=== PATIENT | male | born 1960 | race Caucasian/White ===

== ENCOUNTER 2017-06-24 09:34 | Emergency (ER) | payer SELFPAY ==
[2017-06-24 09:43] VITALS: TEMP 98.4; BMI 21.9
[2017-06-24] MEDS ORDERED: diphenhydrAMINE HCL 25 MG CAPSULE (FP) PO ONE ×2 (11:18→11:38)
[2017-06-24] MEDS ORDERED: LORazepam 1 MG TABLET PO ONE (11:18)
--- NOTE | 2017-06-24 11:23 | PDOC ---
History of Present Illness - General Chief Complaint: Respiratory Stated Complaint: SOB Time Seen by Provider: 06/24/17 10:37 History Source: Patient - History of Present Illness Timing/Duration: reports: other Associated Symptoms: reports: cough, nasal congestion, nasal drainage, shortness of breath. denies: chest pain/soreness, fever/chills, muscle aches, sore throat Past History - Past Medical History Allergies/Adverse Reactions: Allergies Allergy/AdvReac Type Severity Reaction Status Date / Time No Known Allergies Allergy Verified 06/24/17 09:43 Home Medications: Ambulatory Orders NK [No Known Home Medication] 06/24/17 COPD: No HTN: Yes Psychiatric Problems: Yes (ANXIETY, DEPRESSION) - Immunization History Immunization Up to Date: Yes - Suicide/Smoking/Psychosocial Hx Smoking Status: No Smoking History: Never smoked Have you smoked in the past 12 months: No Hx Alcohol Use: No Drug/Substance Use Hx: No Substance Use Type: None Review of Systems - Review of Systems Constitutional: No: Chills, Fever HEENTM: Yes: Nose Congestion. No: Throat Pain Respiratory: Yes: Cough, Shortness of Breath. No: Wheezing Cardiac (ROS): No: Chest Pain ABD/GI: No: Diarrhea, Nausea, Vomiting *Physical Exam - Vital Signs Last Vital Signs Temp Pulse Resp BP Pulse Ox 98.4 F 95 H 18 138/96 97 06/24/17 09:41 06/24/17 09:41 06/24/17 09:41 06/24/17 09:41 06/24/17 09:41 - Physical Exam Comments: 06/24/17 11:23 appears anxious and teary General Appearance: Yes: Appropriately Dressed HEENT: positive: Normal Voice. negative: Scleral Icterus (R), Scleral Icterus ( L) Neck: positive: Supple. negative: Lymphadenopathy (R), Lymphadenopathy (L) Respiratory/Chest: positive: Lungs Clear, Normal Breath Sounds. negative: Respiratory Distress Cardiovascular: positive: Regular Rate, S1, S2 Gastrointestinal/Abdominal: positive: Soft. negative: Tender Integumentary: positive: Dry, Warm. negative: Rash Neurologic: positive: Fully Oriented, Alert ED Treatment Course - LABORATORY CBC & Chemistry Diagram: 06/24/17 12:16 06/24/17 12:16 - RADIOLOGY Radiology Studies Ordered: Category Date Time Status CHEST PA & LAT [RAD] Stat Radiology 06/24/17 11:17 Ordered Medical Decision Making - Medical Decision Making 06/24/17 11:18 57-year-old male history of anxiety ran out of his lorazepam August of last year , possible depression, here with nasal congestion with rhinorrhea, productive cough and possible shortness of breath 10 days. No CP. Denies any body aches, fever or chills. Patient also complaining of generalized pruritis 2 weeks that started after roommate bought a dog. Patient states he is allergic to dogs. No history of anaphylaxis. States he is unable to sleep because of pruritus. See exam Viral syndrome -labs/cxr Pruritis M/l allergic rxn to dog at home No h/o anaphylaxis -Benadryl -pt states in process of moving out of current residence 2/2 dog Anxiety Appears anxious and teary on eval Has empty bottle of lorazepam on his person that was filled 09/07 -dose of ativan in ED -will refer to out-pt clinic on discharge 06/24/17 12:59pm Pt is more relaxed and calm after dose of Ativan. Labs and chest x-ray unremarkable. Will dc with supportive treatment. Clinic referral given 06/24/17 13:03 *DC/Admit/Observation/Transfer Diagnosis at time of Disposition: Viral syndrome - Discharge Dispostion Disposition: HOME Condition at time of disposition: Improved - Referrals Referrals: [facility] (Harini Clancy) [Outside] - Patient Instructions Printed Discharge Instructions: DI for General Allergic Reactions, DI for Viral Syndrome Additional Instructions: Alma sntomas son muy probablemente virales. Alma exmenes de laboratorio, dayanara X y gripe fueron todos normales. Descanse, tome muchos lquidos y tome Tylenol segn sea necesario para el dolor y / o la fiebre. [place] benadryl sobre el mostrador segn lo indicado para la picazn Tendr que hacer un seguimiento en la clnica para reiniciar mariano medicacin para la ansiedad. Por favor haz un seguimiento en [facility] Print Language: SWEDISH - Post Discharge Activity
[2017-06-24] MEDS ORDERED: LORazepam 0.5 MG TABLET ONE (11:38)
[2017-06-24 12:31] LABS: BASO % 1.1 % (0-2.0); EOS % 2.6 % (0-4.5); HEMATOCRIT 44.6 % (35.4-49); HEMOGLOBIN 14.5 GM/dL (11.7-16.9); LYMPH % 15.6 % (8-40); MCH 28.1 pg (25.7-33.7); MCHC 32.5 g/dl (32.0-35.9); MEAN CELL VOLUME 86.5 fl (80-96); MEAN PLT VOLUME 7.9 fl (7.5-11.1); MONO % 8.8 % (3.8-10.2); NEUT % 71.9 % (42.8-82.8); PLATELET COUNT 279 K/MM3 (134-434); RBC 5.15 M/mm3 (4.00-5.60); WHITE BLOOD COUNT 7.5 K/mm3 (4.0-10.0)
[2017-06-24 12:32] LABS: URINE APPEARANCE CLEAR; URINE BILIRUBIN NEGATIVE (NEGATIVE); URINE BLOOD 1+ (NEGATIVE); URINE COLOR LTYELLOW; URINE GLUCOSE (UA) NEGATIVE (NEGATIVE); URINE KETONE TRACE (NEGATIVE); URINE LEUK ESTERASE NEGATIVE (NEGATIVE); URINE NITRITE NEGATIVE (NEGATIVE); URINE PROTEIN NEGATIVE (NEGATIVE); URINE UROBILINOGEN NEGATIVE mg/dL (0.2-1.0)
[2017-06-24 12:54] LABS: ALBUMIN 4.3 g/dl (3.4-5.0); ALK PHOS 85 U/L (45-117); ANION GAP 8 (8-16); BILIRUBIN,TOTAL 0.4 mg/dL (0.2-1.0); BLOOD UREA NITROGEN 11 mg/dL (7-18); CHLORIDE 106 mmol/L (98-107); CO2 27 mmol/L (21-32); CREATININE 0.7 mg/dL (0.7-1.3); GLUCOSE,RANDOM 91 mg/dL (74-106); LIPASE 99 U/L (73-393); SGOT/AST 14 U/L (15-37); SGPT/ALT 18 U/L (12-78); SODIUM 141 mmol/L (136-145); TOT PROT 7.2 g/dl (6.4-8.2)
[2017-06-24 13:25] VITALS: BP 142/92; PULSE 72
--- NOTE | 2017-06-24 14:03 | EKG ---
Test Reason : Blood Pressure : / mmHG Vent. Rate : 067 BPM Atrial Rate : 067 BPM P-R Int : 186 ms QRS Dur : 092 ms QT Int : 408 ms P-R-T Axes : 067 043 054 degrees QTc Int : 431 ms NORMAL SINUS RHYTHM NORMAL ECG WHEN COMPARED WITH ECG OF 10-MAY-2014 20:03, NO SIGNIFICANT CHANGE WAS FOUND Confirmed by SOFAI HORNER MD ([id number]) on 06/24/2017 2:02:29 PM Referred By: Confirmed By:SOFIA HORNER MD
== END 2017-06-24 13:35 | disposition home or self-care (01) ==
LOC: JER 09:34
DX: J06.9 Acute upper respiratory infection, unspecified (principal); B97.89 Other viral agents as the cause of diseases classified elsewhere; J30.81 Allergic rhinitis due to animal (cat) (dog) hair and dander; I10 Essential (primary) hypertension; F41.8 Other specified anxiety disorders; F32.9 Major depressive disorder, single episode, unspecified
CPT/HCPCS: 36415; 71046-TC; 80053; 81003; 81015; 83690; 85025; 87804; 93005; 93010; 99282-25

== ENCOUNTER 2018-06-09 13:39 | Emergency (ER) | payer SELFPAY ==
[2018-06-09 14:02] VITALS: BMI 25.8
[2018-06-09] MEDS ORDERED: ACETAMINOPHEN 325 MG TABLET (FP) PO ONE (14:12)
[2018-06-09] MEDS ORDERED: ACETAMINOPHEN 325 MG TABLET (FP) ONE (14:18)
--- NOTE | 2018-06-09 14:19 | PDOC ---
History of Present Illness - General Chief Complaint: Psychiatric Stated Complaint: PANIC ATTACK Time Seen by Provider: 06/09/18 13:49 History Source: Patient Exam Limitations: No Limitations - History of Present Illness Initial Comments: 06/09/18 14:13 58 yo male pmh significant for seasonal allergies presents to the ER as a Rapid Medical Response for SOB, fevers, vomiting and body aches. Pt saw his PCP this am for the same complaints and was instructed to come to the hospital and have blood drawn along with a chest xray. During rapid response pt visibly in distress, teary eyed and leaning over a garbage can attempting to vomit. Pt states he is concerned he may have cancer and is very anxious about it. P Past History - Past Medical History Allergies/Adverse Reactions: Allergies Allergy/AdvReac Type Severity Reaction Status Date / Time No Known Allergies Allergy Verified 06/24/17 09:43 Home Medications: Ambulatory Orders NK [No Known Home Medication] 06/24/17 COPD: No HTN: Yes Psychiatric Problems: Yes (ANXIETY, DEPRESSION) - Immunization History Immunization Up to Date: Yes - Suicide/Smoking/Psychosocial Hx Smoking Status: No Smoking History: Never smoked Have you smoked in the past 12 months: No Hx Alcohol Use: No Drug/Substance Use Hx: No Substance Use Type: None *Physical Exam - Vital Signs Last Vital Signs Temp Pulse Resp BP Pulse Ox 100.2 F H 106 H 20 140/91 99 06/09/18 13:51 06/09/18 13:51 06/09/18 13:51 06/09/18 13:51 06/09/18 13:51 Moderate Sedation - Procedure Monitoring Vital Signs: Procedure Monitoring Vital Signs Temperature 100.2 F H 06/09/18 13:51 Pulse Rate 106 H 06/09/18 13:51 Respiratory Rate 20 06/09/18 13:51 Blood Pressure 140/91 06/09/18 13:51 O2 Sat by Pulse Oximetry (%) 99 06/09/18 13:51 ED Treatment Course - LABORATORY CBC & Chemistry Diagram: 06/09/18 16:25 06/09/18 16:25 - RADIOLOGY Radiology Studies Ordered: Category Date Time Status CHEST PA & LAT [RAD] Stat Radiology 06/09/18 13:50 Ordered *DC/Admit/Observation/Transfer Diagnosis at time of Disposition: SOB (shortness of breath) - Discharge Dispostion Disposition: HOME Condition at time of disposition: Stable Decision to Admit order: No - Referrals Referrals: Lola Gannon MD [Primary Care Provider] - - Patient Instructions Printed Discharge Instructions: DI for Anxiety -- Adult, DI for Shortness of Breath Additional Instructions: Por favor, lenin un seguimiento con mariano mdico de atencin primaria y lenin mariano shawna el lunes a las 8:30 am. Regrese a la miguel de emergencias para los sntomas nuevos o que empeoran, entre los que se incluyen: dolor en el pecho, dificultad para respirar, fiebre louie o debilidad. Arturo el contador Tylenol y Motrin cada 4-6 horas para la fiebre. Jaelyn Print Language: GUYANESE - Post Discharge Activity
[2018-06-09] MEDS ORDERED: LORazepam 1 MG TABLET PO ONE (14:29)
[2018-06-09] MEDS ORDERED: ONDANSETRON 4 MG TABLET PO ONE (14:30)
[2018-06-09] MEDS ORDERED: LORazepam 0.5 MG TABLET ONE (14:46)
[2018-06-09] MEDS ORDERED: ONDANSETRON *ODT* 4 MG TABLET ONE (14:46)
--- NOTE | 2018-06-09 16:34 | PDOC ---
Attending Attestation - Resident Resident Name: Juan J Lowry - ED Attending Attestation I have performed the following: I have examined & evaluated the patient, The case was reviewed & discussed with the resident, I agree w/resident's findings & plan - HPI HPI: 06/09/18 16:30 58-year-old male with history of anxiety and depression sent for outpatient labs and chest x-ray by Dr. Gannon presents to the ED as rapid response for a multitude of complaints including palpitations, mild headache, and generalized body weakness and tremor. Rapid response was called to outpatient phlebotomy with the patient reported all the symptoms, presented to the ED borderline hysterical with tears, very anxious and barely able to give a history but without any focality or acute respiratory distress. Patient reported body aches for 1-2 days with chills, no throat pain or cough or difficulty breathing, no localizing abdominal complaints. . No recent travel or sick contacts - Physicial Exam PE: 06/09/18 16:31 Low-grade temp 100.2, slight tachycardia, O2 sat within normal limits. Initially tearful, much calmer after Ativan Oropharynx clear, neck supple Slight crackles right base, otherwise clear Abdomen soft/nontender/nondistended No rash - Medical Decision Making 06/09/18 16:32 58-year-old male with history of anxiety/depression presents with generalized body aches and low-grade fever after referral for outpatient workup with labs and chest x-ray. Generally well-appearing here, extremely anxious initially that improved. Check labs including CBC, chemistry, urinalysis Influenza swab, chest x-ray Antipyretics, anxiolytics Reassess. discussed with Dr. Gannon (who initially referred for outpt tests) , who agrees can f/u in office if above wnl. Heart Score/ECG Review #1 ECG reviewed & interpreted by me at: 16:17 General ECG Interpretation: Sinus Rhythm (tachy at 110), Normal Intervals (qtc 470), No acute ischemic changes (nonspecific T wave changes I/AVL)
[2018-06-09 16:39] LABS: BASO % 0.3 % (0-2.0); EOS % 0.1 % (0-4.5); HEMATOCRIT 38.3 % (35.4-49); HEMOGLOBIN 13.3 GM/dL (11.7-16.9); LYMPH % 3.1 % (8-40); MCH 29.5 pg (25.7-33.7); MCHC 34.8 g/dl (32.0-35.9); MEAN CELL VOLUME 84.7 fl (80-96); MEAN PLT VOLUME 7.9 fl (7.5-11.1); MONO % 6.5 % (3.8-10.2); PLATELET COUNT 261 K/MM3 (134-434); RBC 4.52 M/mm3 (4.00-5.60); RDW 12.7 % (11.9-15.9); WHITE BLOOD COUNT 12.4 K/mm3 (4.0-10.0)
[2018-06-09 17:28] LABS: ALBUMIN 3.9 g/dl (3.4-5.0); ALK PHOS 67 U/L (45-117); ANION GAP 8 MMOL/L (8-16); BILIRUBIN,TOTAL 1.1 mg/dL (0.2-1); BLOOD UREA NITROGEN 17 mg/dL (7-18); CALCIUM 8.2 mg/dL (8.5-10.1); CHLORIDE 104 mmol/L (98-107); CO2 25 mmol/L (21-32); CREATININE 0.9 mg/dL (0.55-1.3); GLUCOSE,RANDOM 99 mg/dL (74-106); POTASSIUM 3.3 mmol/L (3.5-5.1); SGOT/AST 18 U/L (15-37); SGPT/ALT 19 U/L (13-61); SODIUM 137 mmol/L (136-145); TOT PROT 6.8 g/dl (6.4-8.2)
[2018-06-09 17:30] LABS: URINE APPEARANCE CLEAR; URINE BILIRUBIN NEGATIVE (<2.0 mg/dL); URINE COLOR LTYELLOW; URINE GLUCOSE (UA) NEGATIVE (NEGATIVE); URINE KETONE 1+ (NEGATIVE); URINE LEUK ESTERASE NEGATIVE (NEGATIVE); URINE NITRITE NEGATIVE (NEGATIVE); URINE PROTEIN 1+ (NEGATIVE); URINE UROBILINOGEN NEGATIVE mg/dL (0.2-1.0)
[2018-06-09 18:05] LABS: URINE BACTERIA MANY /hpf (NONE SEEN); URINE MUCUS RARE
[2018-06-09 18:29] VITALS: BP 110/61; PULSE 95; TEMP 100.1
[2018-06-09 21:08] LABS: ANISOCYTOSIS 1+; MACROCYTOSIS 0; OVALOCYTE 1+; PLATELET ESTIMATE NORMAL
--- NOTE | 2018-06-10 16:29 | EKG ---
Test Reason : Blood Pressure : / mmHG Vent. Rate : 110 BPM Atrial Rate : 110 BPM P-R Int : 166 ms QRS Dur : 090 ms QT Int : 348 ms P-R-T Axes : 046 039 070 degrees QTc Int : 470 ms SINUS TACHYCARDIA NONSPECIFIC T WAVE ABNORMALITY ABNORMAL ECG Confirmed by MD CATA, CRESCENCIO ([id number]) on 06/10/2018 4:29:16 PM Referred By: Confirmed By:CRESCENCIO IVY MD
== END 2018-06-09 18:30 | disposition home or self-care (01) ==
LOC: JER 13:39
CPT/HCPCS: 36415; 71046-TC-FY; 80053; 81003; 81015; 85025; 87804; 93005; 93010; 99282-25

== ENCOUNTER 2019-09-20 14:43 | Emergency (ER) | payer OTHER ==
[2019-09-20 14:48] VITALS: BP 138/83; PULSE 86; TEMP 99.5
[2019-09-20 14:52] VITALS: BMI 22.7
--- NOTE | 2019-09-20 14:54 | PDOC ---
Rapid Medical Evaluation Time Seen by Provider: 09/20/19 14:48 Medical Evaluation: Allergies Allergy/AdvReac Type Severity Reaction Status Date / Time No Known Allergies Allergy Verified 09/20/19 14:48 Vital Signs Temp Pulse Resp BP Pulse Ox 99.5 F 86 20 138/83 100 09/20/19 14:44 09/20/19 14:44 09/20/19 14:44 09/20/19 14:44 09/20/19 14:44 09/20/19 14:50 I have performed a brief in-person evaluation of this patient. The patient presents with a chief complaint of:CP w/ SOB w/ n/v x several days. H/o HLD, HTN Pertinent physical exam findings:Stable w/ clear chest/lungs I have ordered the following:ekg/cxr/labs The patient will proceed to the ED for further evaluation. 09/20/19 14:53 Discharge Disposition - Diagnosis Chest pain Qualifiers: Chest pain type: unspecified Qualified Code(s): R07.9 - Chest pain, unspecified - Referrals - Patient Instructions - Post Discharge Activity
--- NOTE | 2019-09-20 15:03 | PDOC ---
History of Present Illness - General Chief Complaint: Chest Pain Stated Complaint: SOB, CHEST PAIN SINCE YESTERDAY Time Seen by Provider: 09/20/19 14:48 History Source: Patient Exam Limitations: No Limitations - History of Present Illness Initial Comments: 09/20/19 15:03 59y M with PMH of HLD, Anxiety presenting to ER for chest pain and palpitations that started yesterday. Pt states he was talking to someone outside about the Bible and the conversation got heated and he got angry. He states the chest pain and palpitations started after. He takes Valium 2mg for anxiety as needed but he did not take it yesterday or today. He endorses some headache and SOB. Denies n/v/d abdominal pain, back pain, dysuria, muscle aches, fevers, chills, sick contacts, cough. He was evicted out of his apartment 6d ago and has been living with a lady. PMD: Alan PMH: see hpi PSH: none Meds: Valium 2mg, 40mg Atorvastatin? Allergies: nkda Social: Past History - Past Medical History Allergies/Adverse Reactions: Allergies Allergy/AdvReac Type Severity Reaction Status Date / Time No Known Allergies Allergy Verified 09/20/19 14:48 Home Medications: Ambulatory Orders Acetaminophen [Tylenol -] 500 mg PO Q4H #30 tablet 09/20/19 Aspirin [ASA -] 81 mg PO DAILY 09/20/19 Atorvastatin Ca [Lipitor] 40 mg PO HS 09/20/19 Diazepam [Valium] 2 mg PO ASDIR 09/20/19 COPD: No HTN: Yes Psychiatric Problems: Yes (ANXIETY, DEPRESSION) - Immunization History Immunization Up to Date: Yes - Psycho Social/Smoking Cessation Hx Smoking Status: No Smoking History: Never smoked Have you smoked in the past 12 months: No Information on smoking cessation initiated: No Hx Alcohol Use: No Drug/Substance Use Hx: No Substance Use Type: None Review of Systems - Review of Systems Constitutional: No: Symptoms Reported HEENTM: No: Symptoms Reported Respiratory: Yes: See HPI Cardiac (ROS): Yes: See HPI ABD/GI: No: Symptoms Reported : No: Symptoms Reported Musculoskeletal: Yes: See HPI Integumentary: No: Symptoms Reported Neurological: Yes: See HPI *Physical Exam - Vital Signs Last Vital Signs Temp Pulse Resp BP Pulse Ox 99.5 F 86 20 138/83 100 09/20/19 14:44 09/20/19 14:44 09/20/19 14:44 09/20/19 14:44 09/20/19 14:44 - Physical Exam General Appearance: Yes: Nourished, Appropriately Dressed. No: Apparent Distress HEENT: positive: EOMI, EVELIO. negative: Scleral Icterus (R), Scleral Icterus (L) Neck: positive: Trachea midline, Supple. negative: Tender Respiratory/Chest: positive: Lungs Clear, Normal Breath Sounds. negative: Chest Tender, Crackles, Rales, Rhonchi, Stridor, Wheezing Cardiovascular: positive: Regular Rhythm, Regular Rate, S1, S2. negative: Edema, JVD, Murmur Vascular Pulses: Dorsalis-Pedis (R): 2+, Doralis-Pedis (L): 2+ Gastrointestinal/Abdominal: positive: Normal Bowel Sounds, Soft. negative: Tender Musculoskeletal: negative: CVA Tenderness, Vertebral Tenderness Extremity: positive: Normal Capillary Refill, Normal Range of Motion Integumentary: positive: Normal Color, Dry, Warm Neurologic: positive: afternoon nanny II-XII NML intact, Fully Oriented, Alert, Normal Mood/Affect, Normal Response, Motor Strength 5/5 ED Treatment Course - LABORATORY CBC & Chemistry Diagram: 09/20/19 15:15 09/20/19 15:15 Medical Decision Making - Medical Decision Making 09/20/19 15:55 59y M with no cardiac history, history of hld, anxiety presenting for chest pain and palpitations vitals wnl. pt also complaining of stiff neck like he pulled a muscle. low suspicion for meningitis, acs, pna however will obtain labs, imaging and ekg. tylenol for magaña' 09/20/19 16:12 ekg: nsr at 78bpm. normal inervals. no doreen or depressions. incomplete RBBB., no twi. 09/20/19 18:15 CXR: no acute chest pathology labs wnl, negative troponin. will dc home, given lidoderm patch. rx for tylenol sent. pt given referral to cardiology. given return precautions. Discharge - Discharge Information Problems reviewed: Yes Clinical Impression/Diagnosis: Chest pain Qualifiers: Chest pain type: unspecified Qualified Code(s): R07.9 - Chest pain, unspecified Condition: Good Disposition: HOME - Additional Discharge Information Prescriptions: Acetaminophen [Tylenol -] 500 mg PO Q4H #30 tablet - Follow up/Referral Referrals: Lucy Phillips MD [Primary Care Provider] - Faustino Peña MD [Staff Physician] - Clinton Mata MD [Staff Physician] - Alex Angeles MD [Staff Physician] - Gerard Madera MD [Staff Physician] - Douglas Real MD [Staff Physician] - Betzaida Lance MD [Staff Physician] - Brando Bain MD [Staff Physician] - Mert Thorpe MD [Staff Physician] - - Patient Discharge Instructions Patient Printed Discharge Instructions: DI for Atypical Chest Pain Additional Instructions: Usted vino a la miguel de emergencias por dolor en el pecho y palpitaciones. La radiografa, el electrocardiograma y el anlisis de roselia son normales. Le recomiendo que consulte a mariano mdico de atencin primaria y a un cardilogo. La informacin para cardiologa se proporciona a continuacin. Monica tus medicamentos a diario. Regrese a la miguel de emergencias si tiene un dolor en el pecho que empeora, falta de aliento o si desarrolla algn sntoma nuevo o preocupante. Jaelyn You came to the ER for chest pain and palpitations. The xray, ekg and blood work is normal. I recommend that you see your primary care doctor as well as a engineering systems analyst. Information for cardiology is provided below. Take your medications daily. Come back to the ER if you have worsening chest pain, shortness of breath or if any new or concerning symptom develops. Thank you - Post Discharge Activity
[2019-09-20 15:41] LABS: BASO % 1.1 % (0-2.0); EOS % 0.7 % (0-4.5); HEMATOCRIT 43.8 % (35.4-49); HEMOGLOBIN 14.6 GM/dL (11.7-16.9); LYMPH % 11.6 % (8-40); MCH 29.1 pg (25.7-33.7); MCHC 33.4 g/dl (32.0-35.9); MEAN PLT VOLUME 8.3 fl (7.5-11.1); MONO % 17.9 % (3.8-10.2); NEUT % 68.7 % (42.8-82.8); PLATELET COUNT 231 K/MM3 (134-434); RBC 5.03 M/mm3 (4.00-5.60); RDW 13.5 % (11.9-15.9); WHITE BLOOD COUNT 5.2 K/mm3 (4.0-10.0)
[2019-09-20] MEDS ORDERED: ACETAMINOPHEN 500 MG TABLET (FP) PO ONE (15:55)
[2019-09-20 16:12] LABS: ALBUMIN 4.1 g/dl (3.4-5.0); ALK PHOS 58 U/L (45-117); ANION GAP 6 MMOL/L (8-16); BILIRUBIN,TOTAL 0.3 mg/dL (0.2-1); BLOOD UREA NITROGEN 9.9 mg/dL (7-18); CALCIUM 8.3 mg/dL (8.5-10.1); CHLORIDE 107 mmol/L (98-107); CO2 27 mmol/L (21-32); CREATININE 0.9 mg/dL (0.55-1.3); GLUCOSE,RANDOM 82 mg/dL (74-106); SGOT/AST 16 U/L (15-37); SGPT/ALT 17 U/L (13-61); SODIUM 140 mmol/L (136-145); TOT PROT 7.4 g/dl (6.4-8.2)
--- NOTE | 2019-09-20 16:13 | PDOC ---
Attending Attestation - Resident Resident Name: Kassy Braga - ED Attending Attestation I have performed the following: I have examined & evaluated the patient, The case was reviewed & discussed with the resident, I agree w/resident's findings & plan - HPI HPI: 09/20/19 16:12 59y M with PMH of HLD, Anxiety presenting to ER for chest pain and palpitations that started yesterday. Pt states he was talking to someone outside about the Bible and the conversation got heated and he got angry. He states the chest pain and palpitations started after. He takes Valium 2mg for anxiety as needed but he did not take it yesterday or today. He endorses some headache and SOB. Denies n/v/d abdominal pain, back pain, dysuria, muscle aches, fevers, chills, sick contacts, cough. He was evicted out of his apartment 6d ago and has been living with a lady. - Medical Decision Making 09/20/19 16:12 59 yo male w/ chest pain after argument over "bible". hx of anxiety Will plan for CXR EKG TROP and dc EKG NSR 78 normal axis and intervals inomplete right bundle pattern no acute ischemia 1515 Discharge - Discharge Information Clinical Impression/Diagnosis: Chest pain Qualifiers: Chest pain type: unspecified Qualified Code(s): R07.9 - Chest pain, unspecified - Follow up/Referral Referrals: Lucy Phillips MD [Primary Care Provider] - - Patient Discharge Instructions - Post Discharge Activity
[2019-09-20] MEDS ORDERED: ACETAMINOPHEN 325 MG TABLET (FP) ONE (16:16)
[2019-09-20] MEDS ORDERED: LIDOCAINE 5% TOPICAL PATCH TP ONE (16:28)
[2019-09-20] MEDS ORDERED: LIDOCAINE 5% TOPICAL PATCH ONE (16:32)
[2019-09-20] MEDS ORDERED: LIDOCAINE PATCH REMOVAL MC SCH (22:00)
--- NOTE | 2019-09-21 14:11 | EKG ---
Test Reason : Blood Pressure : / mmHG Vent. Rate : 078 BPM Atrial Rate : 078 BPM P-R Int : 164 ms QRS Dur : 094 ms QT Int : 392 ms P-R-T Axes : 063 025 061 degrees QTc Int : 446 ms NORMAL SINUS RHYTHM POSSIBLE LEFT ATRIAL ENLARGEMENT INCOMPLETE RIGHT BUNDLE BRANCH BLOCK SEPTAL INFARCT , AGE UNDETERMINED ABNORMAL ECG WHEN COMPARED WITH ECG OF 09-JUN-2018 16:17, INCOMPLETE RIGHT BUNDLE BRANCH BLOCK IS NOW PRESENT SEPTAL INFARCT IS NOW PRESENT VENT. RATE HAS DECREASED Confirmed by SAMINA CAI MD ([id number]) on 09/21/2019 2:11:07 PM Referred By: Confirmed By:SAMINA CAI MD
== END 2019-09-20 16:51 | disposition home or self-care (01) ==
LOC: JER 14:43
DX: R07.9 Chest pain, unspecified (principal)
CPT/HCPCS: 36415; 71046-TC-FY; 80053; 82550; 84484; 85025; 93005; 93010; 99285-25